=== PATIENT | female | born 1990 | race Hispanic/Latino ===

== ENCOUNTER 2021-03-09 16:13 | Emergency (ER) | payer OTHER ==
[~2021-03-09] VITALS: Ht 172.7 cm; Wt 99.8 kg
[2021-03-09] MEDS ORDERED: LACTATED RINGER'S 1,000 ML INJ STA (16:52)
[2021-03-09] MEDS ORDERED: ONDANSETRON HCL INJ 2MG/ML 2ML 2 MG/ML VIAL IV STA (16:52)
[2021-03-09] MEDS ORDERED: MORPHINE SULFATE INJ 4 MG/ML INJ 1ML IV STA (16:52)
[2021-03-09] MEDS ORDERED: PIPERACILLIN/TAZOBACTAM 3.375 GM in SODIUM CHLORIDE 0.9% 50ML 50 ML IV STA (16:52)
[2021-03-09 17:14] LABS: BASOPHILS % 0.5 % (0.0-1.0); EOSINOPHILS # (AUTO) 0.1 (0.0-0.4); EOSINOPHILS % 1.3 % (0.0-6.0); HEMATOCRIT 38.4 % (34.2-44.1); HEMOGLOBIN 12.3 g/dL (12.0-16.0); LYMPHOCYTES # (AUTO) 2.2 (1.0-3.2); LYMPHOCYTES % 35.7 % (18.0-39.1); MEAN CORPUSCULAR HEMOGLOBIN 27.9 pg (28-32); MEAN CORPUSCULAR VOLUME 87.1 fL (81-99); MONOCYTES # (AUTO) 0.8 (0.2-0.8); MONOCYTES % 12.3 % (4.4-11.3); NEUTROPHILS # (AUTO) 3.1 (2.1-6.9); NEUTROPHILS % 49.9 % (38.7-80.0); PLATELET COUNT 279 x10e3/uL (140-360); RED BLOOD COUNT 4.41 x10e6/uL (3.6-5.1); RED CELL DISTRIBUTION WIDTH 18.6 % (11.7-14.4)
[2021-03-09 17:29] LABS: ALANINE AMINOTRANSFERASE 28 IU/L (0-55); ALBUMIN 3.6 g/dL (3.5-5.0); ALBUMIN/GLOBULIN RATIO 0.9 (0.8-2.0); ALKALINE PHOSPHATASE 68 IU/L (40-150); BLOOD UREA NITROGEN 14 mg/dL (7-26); BUN/CREATININE RATIO 17 (6-25); CALCIUM 9.2 mg/dL (8.4-10.2); CARBON DIOXIDE 23 mmol/L (22-29); CHLORIDE 109 mmol/L (98-107); CREATININE, SERUM 0.84 mg/dL (0.57-1.11); EST GLOMERULAR FILTRATION RATE 80 ML/MIN (60-); GLUCOSE 86 mg/dL (74-118); SODIUM 138 mmol/L (136-145)
[2021-03-09] MEDS ORDERED: CEFEPIME 1 GM in SODIUM CHLORIDE 0.9% 50ML 50 ML IV ONE (17:30)
[2021-03-09] MEDS ORDERED: CLINDAMYCIN HC300 MG PO (19:58)
== END 2021-03-09 20:08 | disposition home or self-care (01) ==
LOC: ER 16:30
DX: N61.1 Abscess of the breast and nipple (principal); N64.4 Mastodynia; I10 Essential (primary) hypertension
CPT/HCPCS: 36415; 76604; 80053; 84702; 85025

== ENCOUNTER 2021-04-24 10:54 | Emergency (ER) | payer OTHER ==
[~2021-04-24] VITALS: Ht 172.7 cm; Wt 117.9 kg
[~2021-04-24 10:54] MED LIST: CLINDAMYCIN HC300 MG PO
[2021-04-24 12:29] LABS: INFLUENZAE A&B ANTIGEN (RAPID) POSITIVE FLU B (NEGATIVE); STREPTOCOCCUS GRP A ANTIGEN NEGATIVE (NEGATIVE)
[2021-04-24] MEDS ORDERED: TAMIFLU75 MG PO (13:58)
[2021-04-24] MEDS ORDERED: PREDNISONE20 MG PO (13:58)
[2021-04-24] MEDS ORDERED: VENTOLIN HFA18 GM INH (13:58)
== END 2021-04-24 14:15 | disposition home or self-care (01) ==
LOC: ER 11:15
DX: J10.1 Influenza due to other identified influenza virus with other respiratory manifestations (principal); I10 Essential (primary) hypertension; Z88.0 Allergy status to penicillin
CPT/HCPCS: 83518; 87070; 87400; 93005; 99282

== ENCOUNTER 2021-07-24 19:36 | Emergency (ER) | payer OTHER ==
[~2021-07-24] VITALS: Ht 172.7 cm; Wt 111.1 kg
[~2021-07-24 19:36] MED LIST changes: +PREDNISONE20 MG PO; +TAMIFLU75 MG PO; +VENTOLIN HFA18 GM INH
[2021-07-24] MEDS ORDERED: IBUPROFEN600 MG PO (19:53)
[2021-07-24] MEDS ORDERED: ZITHROMAX500 MG PO (19:53)
== END 2021-07-24 20:00 | disposition home or self-care (01) ==
LOC: ER 19:51
DX: H66.93 Otitis media, unspecified, bilateral (principal); I10 Essential (primary) hypertension
CPT/HCPCS: 99282

== ENCOUNTER 2024-10-21 13:01 | Emergency (ER) | payer OTHER ==
[~2024-10-21] VITALS: Ht 172.7 cm; Wt 106.6 kg
[~2024-10-21 13:01] MED LIST changes: +IBUPROFEN600 MG PO; +ULTRAM 50MG50 MG PO; +ZITHROMAX500 MG PO
[2024-10-21 13:09] VITALS: PULSE 72; RESP 18; TEMP 97.7
[2024-10-21] MEDS: KETOROLAC TROMETHAMINE 30 MG/ML VIAL IV STA (13:30)
[2024-10-21 13:36] LABS: BASOPHILS % 0.3 % (0.0-1.0); EOSINOPHILS # (AUTO) 0.1 (0.0-0.4); EOSINOPHILS % 1.7 % (0.0-6.0); HEMATOCRIT 33.6 % (34.2-44.1); HEMOGLOBIN 10.4 g/dL (12.0-16.0); LYMPHOCYTES # (AUTO) 1.6 (1.0-3.2); LYMPHOCYTES % 22.7 % (18.0-39.1); MEAN CORPUSCULAR HEMOGLOBIN 24.1 pg (28-32); MEAN CORPUSCULAR VOLUME 77.8 fL (81-99); MONOCYTES # (AUTO) 0.8 (0.2-0.8); MONOCYTES % 10.8 % (4.4-11.3); NEUTROPHILS # (AUTO) 4.5 (2.1-6.9); NEUTROPHILS % 64.2 % (38.7-80.0); PLATELET COUNT 319 x10e3/uL (140-360); RED BLOOD COUNT 4.32 x10e6/uL (3.6-5.1); RED CELL DISTRIBUTION WIDTH 19.2 % (11.7-14.4); WHITE BLOOD COUNT 6.93 x10e3/uL (4.8-10.8)
[2024-10-21 14:04] LABS: ANION GAP 12.8 mmol/L (8-16); BLOOD UREA NITROGEN 10 mg/dL (7-26); BUN/CREATININE RATIO 12 (6-25); CALCIUM 9.1 mg/dL (8.4-10.2); CARBON DIOXIDE 22 mmol/L (22-29); CHLORIDE 103 mmol/L (98-107); CREATININE, SERUM 0.83 mg/dL (0.57-1.11); EST GLOMERULAR FILTRATION RATE 95 ML/MIN (>=60); GLUCOSE 93 mg/dL (74-118); POTASSIUM 3.8 mmol/L (3.5-5.1); SODIUM 134 mmol/L (136-145)
[2024-10-21 14:12] LABS: TROPONIN I 0.005 ng/mL (0-0.300)
[2024-10-21 16:03] VITALS: BP 131/78; PULSE 71; RESP 17; O2SAT 100
== END 2024-10-21 16:04 | disposition home or self-care (01) ==
LOC: ER 13:23
DX: R07.89 Other chest pain (principal); I10 Essential (primary) hypertension; F17.210 Nicotine dependence, cigarettes, uncomplicated
CPT/HCPCS: 36415; 71045; 80048; 84484; 84702; 85025; 93005; 99284; J1885

== ENCOUNTER 2025-02-09 11:02 | Emergency (ER) | payer OTHER ==
[~2025-02-09] VITALS: Ht 172.7 cm; Wt 106.6 kg
[2025-02-09 11:15] VITALS: TEMP 98.2
[2025-02-09 11:55] LABS: CORONAVIRUS COVID-19 AG NEGATIVE (NEGATIVE); INFLUENZA A AG NEGATIVE (NEGATIVE); INFLUENZA B AG NEGATIVE (NEGATIVE)
[2025-02-09 12:00] VITALS: PULSE 68; RESP 18
[2025-02-09 12:00] LABS: STREPTOCOCCUS GRP A ANTIGEN NEGATIVE (NEGATIVE)
[2025-02-09] MEDS ORDERED: CEFDINIR300 MG PO (12:52)
[2025-02-09 13:00] VITALS: BP 155/100; PULSE 63; RESP 16; TEMP 98; O2SAT 100
== END 2025-02-09 13:15 | disposition home or self-care (01) ==
LOC: ER 11:09
DX: R05.9 Cough, unspecified (principal); J06.9 Acute upper respiratory infection, unspecified; H66.92 Otitis media, unspecified, left ear; R11.2 Nausea with vomiting, unspecified; I10 Essential (primary) hypertension; Z11.52 Encounter for screening for COVID-19
CPT/HCPCS: 71045; 83518; 87070; 99283